=== PATIENT | male | born 1945 | race Caucasian/White ===

== ENCOUNTER → 2023-12-18 | Outpatient (CLI) | payer MEDICARE, OTHER | END | disposition home or self-care (01) | LOC: RESCLI 09:52 | PROVIDERS: ATTEND Internal Medicine | DX: I82.502 Chronic embolism and thrombosis of unspecified deep veins of left lower extremity (principal); E11.22 Type 2 diabetes mellitus with diabetic chronic kidney disease; E11.65 Type 2 diabetes mellitus with hyperglycemia; N18.9 Chronic kidney disease, unspecified; C61 Malignant neoplasm of prostate; Z98.890 Other specified postprocedural states; Z87.891 Personal history of nicotine dependence; Z88.0 Allergy status to penicillin; Z79.84 Long term (current) use of oral hypoglycemic drugs; Z79.899 Other long term (current) drug therapy ==